=== PATIENT | male | born 1995 | race Caucasian/White ===

== ENCOUNTER 2017-05-30 19:41 | Emergency (ER) | payer OTHER ==
[~2017-05-30] VITALS: Ht 182.9 cm; Wt 112.9 kg
[2017-05-30 19:58] VITALS: Ht 182.9 cm; Wt 112.9 kg
[2017-05-30 21:49] VITALS: BP 128/76
== END 2017-05-30 21:49 | disposition home or self-care (01) ==
LOC: ED 19:41
DX: M25.531 Pain in right wrist (principal); J45.909 Unspecified asthma, uncomplicated

== ENCOUNTER 2017-07-04 11:27 | Emergency (ER) | payer OTHER ==
[~2017-07-04] VITALS: Ht 182.9 cm; Wt 117.9 kg
[2017-07-04 11:33] VITALS: Ht 182.9 cm; Wt 117.9 kg
[2017-07-04 13:17] VITALS: BP 113/72
== END 2017-07-04 13:17 | disposition home or self-care (01) ==
LOC: ED 11:27
DX: R10.12 Left upper quadrant pain (principal); R11.2 Nausea with vomiting, unspecified; R63.0 Anorexia; J45.909 Unspecified asthma, uncomplicated
CPT/HCPCS: Q0162

== ENCOUNTER 2017-08-02 06:53 | Emergency (ER) | payer OTHER ==
[~2017-08-02] VITALS: Ht 182.9 cm; Wt 115.7 kg
[2017-08-02 07:01] VITALS: BP 133/69; Ht 182.9 cm; Wt 115.7 kg
== END 2017-08-02 07:32 | disposition home or self-care (01) ==
LOC: ED 06:53
DX: M54.5 Low back pain (principal); J45.909 Unspecified asthma, uncomplicated

== ENCOUNTER 2017-09-07 20:37 | Emergency (ER) | payer OTHER ==
[~2017-09-07] VITALS: Ht 185.4 cm; Wt 115.2 kg
[2017-09-07 21:09] VITALS: Ht 185.4 cm; Wt 115.2 kg
[2017-09-07 23:52] LABS: BASOPHIL % 0.1 % (0-2); PLATELET COUNT 216 x10^3mcL (130-400); RED CELL DISTRIBUTION WIDTH 13.1 % (11.5-14.5)
[2017-09-08 00:03] LABS: CALCIUM 8.2 mg/dL (8.5-10.1); CARBON DIOXIDE 25.9 mmol/L (21-32); CHLORIDE SERUM 101 mmol/L (98-107); GFR1 > 60 mL/min; GLUCOSE SERUM 99 mg/dL (74-106); POTASSIUM SERUM 3.6 mmol/L (3.5-5.1); SODIUM SERUM 135 mmol/L (136-145)
[2017-09-08 00:21] LABS: ALBUMIN 3.7 g/dL (3.4-5.0); ALKALINE PHOSPHATASE 60 U/L (46-116); AST/SGOT 34 U/L (15-37); BILIRUBIN TOTAL 0.8 mg/dL (0.20-1.00); TOTAL PROTEIN, SERUM 6.9 g/dL (6.4-8.2)
[2017-09-08 01:09] LABS: ALT/SGPT 67 U/L (16-63)
[2017-09-08 03:57] VITALS: BP 110/82
== END 2017-09-08 03:57 | disposition home or self-care (01) ==
LOC: ED 20:37
PROVIDERS: Emergency Medicine
DX: R11.10 Vomiting, unspecified (principal); R19.7 Diarrhea, unspecified; R10.9 Unspecified abdominal pain; J45.909 Unspecified asthma, uncomplicated
CPT/HCPCS: J2405; J7030

== ENCOUNTER 2017-10-19 06:46 | Emergency (ER) | payer OTHER ==
[~2017-10-19] VITALS: Ht 182.9 cm; Wt 113.8 kg
[2017-10-19 06:52] VITALS: Ht 182.9 cm; Wt 113.8 kg
[2017-10-19 08:17] LABS: CALCIUM 8.4 mg/dL (8.5-10.1); CARBON DIOXIDE 28.8 mmol/L (21-32); CHLORIDE SERUM 110 mmol/L (98-107); CREATININE SERUM 0.9 mg/dL (0.7-1.3); GFR1 > 60 mL/min; GLUCOSE SERUM 90 mg/dL (74-106); POTASSIUM SERUM 4.3 mmol/L (3.5-5.1); SODIUM SERUM 146 mmol/L (136-145)
[2017-10-19 08:21] LABS: ALBUMIN 3.6 g/dL (3.4-5.0); ALKALINE PHOSPHATASE 60 U/L (46-116); ALT/SGPT 67 U/L (16-63); AST/SGOT 19 U/L (15-37); BILIRUBIN TOTAL 0.37 mg/dL (0.20-1.00); LIPASE 172 IU/L (73-393); TOTAL PROTEIN, SERUM 6.6 g/dL (6.4-8.2)
[2017-10-19 09:36] VITALS: BP 115/64
== END 2017-10-19 09:36 | disposition home or self-care (01) ==
LOC: ED 06:46
PROVIDERS: Emergency Medicine
DX: K29.70 Gastritis, unspecified, without bleeding (principal); J45.909 Unspecified asthma, uncomplicated
CPT/HCPCS: Q0162

== ENCOUNTER 2017-10-27 06:48 | Emergency (ER) | payer OTHER ==
[~2017-10-27] VITALS: Ht 182.9 cm; Wt 112.9 kg
[2017-10-27 07:44] LABS: BASOPHIL % 0.7 % (0-2); CALCIUM 8.8 mg/dL (8.5-10.1); CARBON DIOXIDE 28.5 mmol/L (21-32); CHLORIDE SERUM 107 mmol/L (98-107); CREATININE SERUM 0.8 mg/dL (0.7-1.3); GFR1 > 60 mL/min; GLUCOSE SERUM 89 mg/dL (74-106); PLATELET COUNT 335 x10^3mcL (130-400); POTASSIUM SERUM 4.2 mmol/L (3.5-5.1); RED CELL DISTRIBUTION WIDTH 13.2 % (11.5-14.5); SODIUM SERUM 143 mmol/L (136-145)
[2017-10-27 07:50] LABS: ALBUMIN 3.7 g/dL (3.4-5.0); ALKALINE PHOSPHATASE 63 U/L (46-116); ALT/SGPT 71 U/L (16-63); AST/SGOT 23 U/L (15-37); BILIRUBIN TOTAL 0.36 mg/dL (0.20-1.00); LIPASE 111 IU/L (73-393); TOTAL PROTEIN, SERUM 6.9 g/dL (6.4-8.2)
[2017-10-27 08:37] VITALS: BP 122/83
== END 2017-10-27 08:37 | disposition home or self-care (01) ==
LOC: ED 06:48
PROVIDERS: Emergency Medicine
DX: R10.13 Epigastric pain (principal); R19.7 Diarrhea, unspecified; R11.10 Vomiting, unspecified; J45.909 Unspecified asthma, uncomplicated
CPT/HCPCS: 36415

== ENCOUNTER 2018-04-01 16:54 | Emergency (ER) | payer MEDICAID ==
[~2018-04-01] VITALS: Ht 182.9 cm; Wt 116.1 kg
[2018-04-01 17:00] VITALS: BP 137/73; Ht 182.9 cm; Wt 116.1 kg
== END 2018-04-01 18:17 | disposition home or self-care (01) ==
LOC: ED 16:54
DX: J45.909 Unspecified asthma, uncomplicated (principal)
CPT/HCPCS: J7620

== ENCOUNTER 2018-04-24 20:59 | Emergency (ER) | payer MEDICAID ==
[~2018-04-24] VITALS: Ht 182.9 cm; Wt 120.2 kg
[2018-04-24 21:04] VITALS: Ht 182.9 cm; Wt 120.2 kg
[2018-04-24 22:42] VITALS: BP 138/85
== END 2018-04-24 22:42 | disposition home or self-care (01) ==
LOC: ED 20:59
DX: J45.909 Unspecified asthma, uncomplicated (principal)
CPT/HCPCS: J7620

== ENCOUNTER 2018-05-05 17:05 | Emergency (ER) | payer MEDICAID ==
[~2018-05-05] VITALS: Ht 182.9 cm; Wt 118.8 kg
[2018-05-05 17:19] VITALS: BP 101/51; Ht 182.9 cm; Wt 118.8 kg
== END 2018-05-05 18:02 | disposition home or self-care (01) ==
LOC: ED 17:05
DX: T62.8X1A Toxic effect of other specified noxious substances eaten as food, accidental (unintentional), initial encounter (principal); J45.909 Unspecified asthma, uncomplicated; Y92.89 Other specified places as the place of occurrence of the external cause

== ENCOUNTER 2018-05-08 14:53 | Emergency (ER) | payer MEDICAID ==
[~2018-05-08] VITALS: Ht 182.9 cm; Wt 119.7 kg
[2018-05-08 15:04] VITALS: BP 147/88; Ht 182.9 cm; Wt 119.7 kg
== END 2018-05-08 16:27 | disposition home or self-care (01) ==
LOC: ED 14:53
DX: R11.0 Nausea (principal); J45.909 Unspecified asthma, uncomplicated

== ENCOUNTER 2020-04-17 11:56 | Emergency (ER) | payer OTHER ==
[~2020-04-17] VITALS: Ht 182.9 cm; Wt 122.5 kg
[2020-04-17 12:00] VITALS: Ht 182.9 cm; Wt 122.5 kg
[2020-04-17 12:37] VITALS: BP 121/71
== END 2020-04-17 12:37 | disposition home or self-care (01) ==
LOC: ED 11:56
DX: M79.10 Myalgia, unspecified site (principal); R50.9 Fever, unspecified; J45.909 Unspecified asthma, uncomplicated; Z20.828 Contact with and (suspected) exposure to other viral communicable diseases
CPT/HCPCS: U0003

== ENCOUNTER 2020-04-23 09:21 | Emergency (ER) | payer OTHER ==
[~2020-04-23] VITALS: Ht 182.9 cm; Wt 129.7 kg
[2020-04-23 09:31] VITALS: Ht 182.9 cm; Wt 129.7 kg
[2020-04-23 10:18] LABS: BASOPHIL % 1.1 % (0-2); PLATELET COUNT 379 x10^3mcL (130-400); RED CELL DISTRIBUTION WIDTH 12.2 % (11.5-14.5)
[2020-04-23 10:29] LABS: CARBON DIOXIDE 30.5 mmol/L (21-32); CHLORIDE SERUM 104 mmol/L (98-107); CREATININE SERUM 0.8 mg/dL (0.7-1.3); GFR1 > 60 mL/min; GLUCOSE SERUM 79 mg/dL (74-106); MAGNESIUM 2.2 mg/dL (1.8-2.4); SODIUM SERUM 140 mmol/L (136-145)
[2020-04-23 11:53] VITALS: BP 125/68
== END 2020-04-23 11:53 | disposition home or self-care (01) ==
LOC: ED 09:21
PROVIDERS: Emergency Medicine
DX: K52.9 Noninfective gastroenteritis and colitis, unspecified (principal); J45.909 Unspecified asthma, uncomplicated

== ENCOUNTER 2020-05-19 08:38 | Emergency (ER) | payer OTHER ==
[~2020-05-19] VITALS: Ht 182.9 cm; Wt 128.8 kg
[2020-05-19 08:49] VITALS: Ht 182.9 cm; Wt 128.8 kg
[2020-05-19 10:51] VITALS: BP 111/79
== END 2020-05-19 10:51 | disposition home or self-care (01) ==
LOC: ED 08:38
DX: K59.00 Constipation, unspecified (principal); J45.909 Unspecified asthma, uncomplicated; R10.84 Generalized abdominal pain

== ENCOUNTER 2020-05-23 09:32 | Emergency (ER) | payer OTHER ==
[~2020-05-23] VITALS: Ht 182.9 cm; Wt 127.0 kg
[2020-05-23 09:58] VITALS: Ht 182.9 cm; Wt 127.0 kg
[2020-05-23 17:04] VITALS: BP 121/83
== END 2020-05-23 11:42 | disposition home or self-care (01) ==
LOC: ED 09:32
DX: R07.82 Intercostal pain (principal); J45.909 Unspecified asthma, uncomplicated